=== PATIENT | male | born 1940 | race Caucasian/White ===

== ENCOUNTER 2017-10-26 17:41 | Emergency (ER) | payer MEDICARE, OTHER ==
[~2017-10-26] VITALS: Ht 175.3 cm; Wt 97.0 kg
[~2017-10-26 17:41] MED LIST: ACET-1757 PO; ACET325T14 PO; BISA5TAB5 PO; CELE400C PO; DIAZ10TA PO; LISI-167 PO; LISI-170 PO; LOSA100T6 PO; MAGN311T PO; MAGN400T7 PO; METF500T9 PO; METFORMIN PO; METO-99 PO; METOPROLOL PO; OXYC-307 PO; OXYC20TA42 PO; PT WILL BRING LIST; SENN-1 PO
[2017-10-26 18:19] LABS: BASOPHILS # (AUTO) 0.02 x10^3/uL (0-0.1); BASOPHILS % (AUTO) 0 % (0-1); EOSINOPHILS # (AUTO) 0.18 x10^3/uL (0-0.4); EOSINOPHILS % (AUTO) 3 % (1-7); LYMPHOCYTES # (AUTO) 0.85 x10^3/uL (1-3.4); LYMPHOCYTES % (AUTO) 13 % (22-44); MD NO; MEAN CORPUSCULAR HEMOGLOBIN 28.9 pg (27.5-34.5); MEAN CORPUSCULAR HGB CONC 33.3 g/dL (33.2-36.2); MEAN CORPUSCULAR VOLUME 86.9 fL (81-97); MEAN PLATELET VOLUME 6.4 fL (7.4-10.4); MONOCYTES % (AUTO) 9 % (2-9); NEUTROPHILS % (AUTO) 74 % (42-75); PLATELET COUNT 337 x10^3/uL (130-400); RED BLOOD COUNT 4.56 x10^6/uL (4.38-5.82); RED CELL DISTRIBUTION WIDTH 15.3 % (9.4-14.8)
[2017-10-26 18:26] LABS: ALANINE AMINOTRANSFERASE 14 U/L (12-78); ALBUMIN 3.1 g/dL (3.4-5.0); ANION GAP 11 mmol/L (5-15); CALCIUM 9.4 mg/dL (8.5-10.1); CHLORIDE 105 mmol/L (98-107)
[2017-10-26 18:28] LABS: ALKALINE PHOSPHATASE 54 U/L (45-117); BILIRUBIN,TOTAL 0.4 mg/dL (0.2-1.0); CREATININE 0.96 mg/dL (0.7-1.3); TOTAL PROTEIN 7.2 g/dL (6.4-8.2)
[2017-10-26] MEDS ORDERED: POTA20TA14 PO (19:23)
[2017-10-26] MEDS ORDERED: AMLO5TAB2 PO (19:23)
[2017-10-26] MEDS ORDERED: METF500T4 PO (19:23)
[2017-10-26] MEDS ORDERED: ASPI-496 PO (19:23)
[2017-10-26] MEDS ORDERED: LORA0.5T PO (19:23)
[2017-10-26] MEDS ORDERED: METO50TA82 PO (19:23)
[2017-10-26] MEDS ORDERED: DIVA125T3 PO (19:23)
[2017-10-26] MEDS ORDERED: QUET50TA PO (19:23)
[2017-10-26] MEDS ORDERED: FAMO-79 PO (19:23)
[2017-10-26] MEDS ORDERED: QUET100T PO (19:23)
[2017-10-26 19:28] LABS: CULTURE INDICATED? YES; MICROSCOPIC INDICATED
[2017-10-26 19:38] VITALS: BP 141/69
[2017-10-26] MEDS ORDERED: NITROFURANTOIN (MACROBID) 100 MG CAPSULE ONE (19:56)
[2017-10-26] MEDS ORDERED: NITROFURANTOIN (MACROBID) 100 MG CAPSULE PO ONE (20:00)
== END 2017-10-26 21:31 | disposition home or self-care (01) ==
LOC: ED 21:14
DX: N39.0 Urinary tract infection, site not specified (principal); R41.82 Altered mental status, unspecified; E11.9 Type 2 diabetes mellitus without complications; F03.90 Unspecified dementia, unspecified severity, without behavioral disturbance, psychotic disturbance, mood disturbance, and anxiety; Z86.73 Personal history of transient ischemic attack (TIA), and cerebral infarction without residual deficits
CPT/HCPCS: 36415; 70450; 71045; 80053; 81001; 85025; 87077; 87086; 87186; 93005; 99285